=== PATIENT | female | born 1995 | race Asian ===

== ENCOUNTER 2017-06-09 11:33 | Emergency (ER) | payer OTHER ==
--- NOTE | 2017-06-09 12:48 | RAD ---
INDICATION: Intracranial injury COMPARISON: CT brain November 24, 2015 TECHNIQUE: Noncontrast axial source images were acquired from the skull base to the vertex. FINDINGS: Ventricles/sulci: The ventricles and cisterns are normal in size and configuration for age. Brain parenchyma: There is no focal parenchymal finding, evidence of intracranial mass, or intracranial mass effect. Intracranial hemorrhage:None. Extra-axial spaces: There are no abnormal extra axial fluid collections or evidence of extra-axial mass. Calvarium: There is no calvarial fracture or other calvarial abnormality. Scalp: There is no evidence of scalp or extracalvarial soft tissue abnormality. Paranasal sinuses/mastoid: There is bilateral ethmoid sinusitis. There is a short air-fluid level in left maxillary antrum. There is minor mucosal thickening involving the sphenoid air cells. Other: None. IMPRESSION: NO INTRACRANIAL ABNORMALITIES. FINDINGS OF MILD ACUTE AND CHRONIC SINUSITIS
[2017-06-09 13:58] VITALS: BP 112/70
--- NOTE | 2017-06-09 18:11 | ED ---
Cuco Hammond Angela, scribed for Cj Sierra MD on 06/09/17 at 1201 . Head Injury - HPI Summary HPI Summary: This pt is a 21 y/o female presenting [place] [facility] [place]/o headache, nausea and vomiting for the past few days now. Pt reports she had 2 head injuries in the past month, 2 weeks ago she had her head closed by a car door and last week a metal fell from about 15 feet high and hit her head.. Pt denies any LOC during these 2 head injuries and didn't have any cat scans. Since then pt has had trouble reading, blurry vision, trouble remembering things, nausea, and vomiting. She additionally c/o fever, cough, and loss of appetite x2 days. Pt currently denies nausea. She has had a couple of concussions in high school before. Pt currently takes ibuprofen for the pain PRN. 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 She is followed up at [facility] by a neurologist but notes she has not been checked in a while. She is supposed to have brain scans every 2 months but has not had any in approximately 1 year. - History Of Current Complaint Chief Complaint: EDHeadInjury Stated Complaint: FEVER, COUGH, HEADACE Time Seen by Provider: 06/09/17 11:50 Hx Obtained From: Patient Mechanism Of Injury: Blunt Trauma - piece of metal hit her head from 15 feet high and getting hit on head with a car door. Onset/Duration: Started Days Ago, Still Present Pain Intensity: 7 Pain Scale Used: 0-10 Numeric Location of Head Injury: Diffuse Associated Signs And Symptoms: Nausea, Vomiting, Fever, Visual Changes - blurry vision, Other: - trouble remembering things - Allergies/Home Medications Allergies/Adverse Reactions: Allergies Allergy/AdvReac Type Severity Reaction Status Date / Time No Known Allergies Allergy Verified 07/03/15 22:03 PMH/Surg Hx/FS Hx/Imm Hx Endocrine/Hematology History: Reports: Hx Thyroid Disease - hypothyroid, Hx Anemia Neurological History: Reports: Other Neuro Impairments/Disorders - brain tumor on pituitary Infectious Disease History: No Infectious Disease History: Denies: Traveled Outside the [place] in Last 30 Days - Family History Known Family History: Positive: Hypertension, Diabetes Negative: Cardiac Disease - Social History Alcohol Use: Occasionally Substance Use Type: Reports: None Smoking Status (MU): Never Smoked Tobacco Review of Systems Positive: Fever, Other - loss of appetite Positive: Blurred Vision Positive: Cough Positive: Vomiting, Nausea - resolved now Neurological: Other - trouble remembering things Positive: Headache All Other Systems Reviewed And Are Negative: Yes Physical Exam Triage Information Reviewed: Yes Vital Signs On Initial Exam: Initial Vitals Temp Pulse Resp BP Pulse Ox 98.1 F 61 18 113/61 99 06/09/17 11:35 06/09/17 11:35 06/09/17 11:35 06/09/17 11:35 06/09/17 11:35 Vital Signs Reviewed: Yes Appearance: Positive: Well-Appearing, Well-Nourished Skin: Positive: Warm, Skin Color Reflects Adequate Perfusion, Dry Head/Face: Positive: Normal Head/Face Inspection Eyes: Positive: Normal, EOMI, JUAN ENT: Positive: Pharynx normal, TMs normal Respiratory/Lung Sounds: Positive: Clear to Auscultation, Breath Sounds Present Cardiovascular: Positive: Normal, RRR Musculoskeletal: Positive: Normal, Strength/ROM Intact Neurological: Positive: Normal, Sensory/Motor Intact, Alert, Oriented to Person Place, Time Psychiatric: Positive: Normal - Lauren Coma Scale Best Eye Response: 4 - Spontaneous Best Motor Response: 6 - Obeys Commands Best Verbal Response: 5 - Oriented Diagnostics - Vital Signs Vital Signs Temp Pulse Resp BP Pulse Ox 06/09/17 11:35 98.1 F 61 18 113/61 99 - Laboratory Lab Statement: Any lab studies that have been ordered have been reviewed, and results considered in the medical decision making process. - CT Brain CT CT Interpretation: No Acute Changes - IMPRESSION: No intracranial abnormalities. Findings of mild acute and chronic sinusitis. ED physician has reviewed this radiology report and agrees. CT Interpretation Completed By: Radiologist Head Injury Course/Dx Assessment/Plan: Pt is a 21 y/o female, with PMHx of benign pituitary brain tumor, who presents with headache, nausea and vomiting for the past few days now. Pt reports she had 2 head injuries in the past month, 2 weeks ago she had her head closed by a car door and last week a metal fell from about 15 feet high and hit her head.. Pt denies any LOC during these 2 head injuries and didn' t have any cat scans. Pt declines any analgesics. Brain CT was obtained. Brain CT shows no intracranial abnormalities. Findings of mild acute and chronic sinusitis. Pt will be discharged home with a diagnosis of concussion. - Diagnoses Provider Diagnoses: Concussion Discharge - Discharge Plan Condition: Stable Disposition: HOME Patient Education Materials: Concussion (ED) Referrals: [facility] [Primary Care Provider] - 2 Days The documentation as recorded by the Cuco malin Angela accurately reflects the service I personally performed and the decisions made by Rigo macdonald Abdul, MD.
== END 2017-06-09 13:58 | disposition home or self-care (01) ==
LOC: ED 11:33
DX: S06.0X9A Concussion with loss of consciousness of unspecified duration, initial encounter (principal); R51 Headache; R11.2 Nausea with vomiting, unspecified; R50.9 Fever, unspecified; H53.8 Other visual disturbances; R05 Cough; W22.8XXA Striking against or struck by other objects, initial encounter; Y93.9 Activity, unspecified; Y92.9 Unspecified place or not applicable
CPT/HCPCS: 70450; 99281